=== PATIENT | female | born 1960 | race Caucasian/White ===

== ENCOUNTER → 2016-03-05 | Outpatient (CLI) | payer OTHER ==
[~2016-03-05] MED LIST: CHOL100010 PO; DEXL30CA5 PO; DICL1GEL28 TD; FLAX1CAP11 PO; FLV1 PO; HYDR0.5T PO; LMS250 PO; MISCCAP80 PO; MULT-506 PO; OMEG10007 PO; OYST500T47 PO; PHEN500T PO; RSTOPS OP; SNG10 PO; VITAMIN D PO; ZINC PO; [UNRECOGNIZED DRUG - CODE]
== END | disposition home or self-care (01) ==
LOC: C.PAPS 12:00
PROVIDERS: ATTEND Obstetrics & Gynecology
DX: Z01.419 Encounter for gynecological examination (general) (routine) without abnormal findings (principal)

== ENCOUNTER → 2016-06-14 | Outpatient (CLI) | payer OTHER ==
[~2016-06-14] MED LIST changes: +CYCL0.052 OPB; +GADAVIST IV PRN; +HYDR200T5 PO; +MONT1TAB3 PO
--- NOTE | 2016-06-14 09:05 | DIAGNOSTIC IMAGING REPORT ---
MRI OF THE BRAIN WITHOUT AND WITH IV CONTRAST CLINICAL HISTORY: Difficulty swallowing. Extremity tingling. COMPARISON STUDY: MRI of the brain August 04, 2015. TECHNIQUE: Utilizing a 1.5 Lisa magnet and dedicated coil, multiplanar, multiecho imaging of the brain was performed pre and postcontrast administration. IV administration of 6 mL of Gadavist contrast was uneventful. FINDINGS: There are no areas of restricted diffusion. No acute intracranial hemorrhage, midline shift or mass effect is present. Brain volume is normal. Ventricular system is normal. Basilar cisterns are patent. Flow-voids for the major intracranial vessels are present. There are no intracranial masses or areas of pathologic enhancement. Calvarial signal is normal. There are no areas of parenchymal signal abnormality. Sinuses and mastoid air cells are clear. IMPRESSION: Normal MRI of the brain. Electronically signed by: Joaquín Pichardo M.D. 06/14/2016 9:04 AM Dictated Date/Time: 06/14/2016 9:01 AM
== END | disposition home or self-care (01) ==
LOC: C.MRI 08:00
PROVIDERS: ATTEND Physician Assistant
DX: R20.2 Paresthesia of skin (principal); R13.10 Dysphagia, unspecified

== ENCOUNTER → 2016-06-20 | Outpatient (CLI) | payer OTHER ==
[~2016-06-20] MED LIST changes: -GADAVIST IV PRN; +OPTIRAY 320 IV PRN
--- NOTE | 2016-06-20 08:05 | DIAGNOSTIC IMAGING REPORT ---
CT SOFT TISSUE NECK WITH CT DOSE: 222.69 mGy.cm CLINICAL HISTORY: Neck pain. Difficulty swallowing. TECHNIQUE: Helical images were acquired during intravenous administration of 94 cc of Optiray 320. COMPARISON STUDY: None. FINDINGS: There is a 3 mm groundglass nodule within the right lung apex on image #[id number]. No thyroid masses are visualized. No salivary gland masses are visualized. There are no pathologically enlarged cervical lymph nodes. No necrotic nodes are evident. There are no fluid collections suspicious for abscess. There is no evidence of airway compromise. No mucosal space masses are visualized. There are degenerative changes present within the cervical spine most pronounced at the C4-5 and C5-6 levels. IMPRESSION: 1. No pathologic neck masses identified 2. No evidence of pathologic adenopathy 3. 3 mm groundglass right upper lobe pulmonary nodule. No follow-up is indicated per recent guidelines. Electronically signed by: Toro Garvey M.D. 06/20/2016 8:04 AM Dictated Date/Time: 06/20/2016 7:59 AM
== END | disposition home or self-care (01) ==
LOC: C.CTS 07:24
PROVIDERS: ATTEND Physician Assistant
DX: M54.2 Cervicalgia (principal); R13.10 Dysphagia, unspecified

== ENCOUNTER → 2016-07-03 | Outpatient (CLI) | payer OTHER ==
[~2016-07-03] MED LIST changes: +GADAVIST IV PRN; -OPTIRAY 320 IV PRN
--- NOTE | 2016-07-03 17:20 | DIAGNOSTIC IMAGING REPORT ---
MRI LUMBAR SPINE COMBINATION CLINICAL HISTORY: Low back pain, tingling, numbness, burning in the feet and legs. POSSIBLE MULTIPLE SCLEROSIS. TECHNIQUE: Sagittal and axial T1, T2 and STIR images were obtained. Images were obtained before and after the administration of 6 cc of intravenous Gadavist COMPARISON STUDY: No previous studies for comparison. OBSERVATIONS: The vertebral bodies and posterior elements appear intact. There is no abnormal bony signal present to suggest a marrow replacement process. L1-2: No disc protrusions or extrusions. No evidence of spinal canal or neural foraminal compromise. L2-3: No disc protrusions or extrusions. No evidence of spinal canal or neural foraminal compromise. L3-4: No disc protrusions or extrusions. No evidence of spinal canal or neural foraminal compromise. L4-5: There is a small broad-based central disc protrusion slightly asymmetric to the left. There is slight flattening of the anterior thecal sac. There is no significant foraminal narrowing. L5-S1: There is a minimal circumferential disc bulge. There is no spinal or foraminal stenosis. The conus medullaris and cauda equina appear normal. There is no pathologic enhancement. IMPRESSION: 1. No evidence of pathologic marrow replacement 2. No masses of the conus. 3. No evidence of pathologic enhancement 4. Small broad-based central disc protrusion slightly asymmetric to the left at the L4-5 level. Electronically signed by: Toro Garvey M.D. 07/03/2016 5:19 PM Dictated Date/Time: 07/03/2016 5:16 PM
--- NOTE | 2016-07-03 18:04 | DIAGNOSTIC IMAGING REPORT ---
MRI CERVICAL SPINE COMBO CLINICAL HISTORY: R20.2 [id number] TECHNIQUE: Sagittal and axial T1, T2 and STIR images were obtained. Imaging was performed before and after administration of 6 cc of intravenous Gadavist. COMPARISON STUDY: No previous studies for comparison. There are no suspicious areas of marrow replacement. No intrinsic cervical cord lesions are visualized. C2-3: There is no evidence of disc bulge or focal herniation. There is no spinal or foraminal stenosis. C3-4: There is no evidence of disc bulge or focal herniation. There is no spinal or foraminal stenosis. C4-5: There is a mild circumferential disc bulge. There is no significant spinal stenosis. There is minimal right-sided foraminal narrowing C5-6 :There is a mild circumferential disc bulge. There is no significant spinal stenosis. There is minor bilateral foraminal narrowing C6-7: There is a minimal circumferential disc bulge. There is no spinal or foraminal stenosis. C7-T1: There is no evidence of disc bulge or focal herniation. There is no evidence of spinal or foraminal stenosis. 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 There are no pathologically enhancing lesions. IMPRESSION: 1. Mild multilevel spondylitic changes 2. No evidence of significant spinal stenosis 3. No cervical cord lesions are visualized. Electronically signed by: Toro Garvey M.D. 07/03/2016 6:03 PM Dictated Date/Time: 07/03/2016 6:00 PM
--- NOTE | 2016-07-03 18:08 | DIAGNOSTIC IMAGING REPORT ---
THORACIC SPINE COMBO CLINICAL HISTORY: R20.2 [id number] COMPARISON STUDY: No previous studies for comparison. FINDINGS: The patient was scanned in the sagittal and axial planes, before and after the administration of 6 cc of intravenous Gadavist. There are no suspicious areas of marrow replacement. No disc herniations are visualized. There is no spinal stenosis. There are no intrinsic cord lesions. There are multiple perineural cysts present. There is no pathologic enhancement. Incidental note is made of a right hepatic lobe cyst. There is a T10 vertebral body hemangioma. IMPRESSION: 1. Minimal degenerative change 2. No evidence of spinal stenosis 3. Multiple perineural cysts 4. No spinal cord plaques are visualized. Electronically signed by: Toro Garvey M.D. 07/03/2016 6:07 PM Dictated Date/Time: 07/03/2016 6:04 PM
== END | disposition home or self-care (01) ==
LOC: C.MRI 15:30
PROVIDERS: ATTEND Physician Assistant
DX: R20.2 Paresthesia of skin (principal)

== ENCOUNTER → 2016-07-28 | Outpatient (CLI) | payer OTHER ==
[~2016-07-28] MED LIST changes: -GADAVIST IV PRN
[2016-07-28 11:21] LABS: BLOOD UREA NITROGEN 17 mg/dl (7-18); BUN/CREATININE RATIO 25.9 (10-20); CALCIUM 8.9 mg/dl (8.5-10.1); CARBON DIOXIDE 26 mmol/L (21-32); CHLORIDE 110 mmol/L (98-107); CREATININE 0.67 mg/dl (0.60-1.20); GLUCOSE 90 mg/dl (70-99); MAGNESIUM 2.2 mg/dl (1.8-2.4); POTASSIUM 4.1 mmol/L (3.5-5.1); SODIUM 143 mmol/L (136-145)
[2016-07-28 11:34] LABS: PHOSPHORUS 3.4 mg/dl (2.5-4.9)
[2016-08-01 22:21] LABS: ILGF1 Z SCORE FEMALE 1.2 SD (-2.0 - +2.0); INSULIN LIKE GROWTH FACTOR-I 232 ng/mL (50-317)
== END | disposition home or self-care (01) ==
LOC: C.LABBC 08:38
PROVIDERS: ATTEND Internal Medicine Endocrinology, Diabetes & Metabolism
DX: R53.83 Other fatigue (principal); S06.0X9A Concussion with loss of consciousness of unspecified duration, initial encounter; R00.2 Palpitations; K58.9 Irritable bowel syndrome, unspecified; M35.9 Systemic involvement of connective tissue, unspecified; M54.5 Low back pain

== ENCOUNTER → 2016-10-09 | Day surgery (SDC) | payer OTHER ==
[2016-09-25 11:53] VITALS: Ht 162.6 cm; Wt 60.0 kg
[~2016-10-09] VITALS: Ht 162.6 cm; Wt 60.0 kg
[~2016-10-09] MED LIST changes: -CHOL100010 PO; -DICL1GEL28 TD; -FLAX1CAP11 PO; -FLV1 PO; -OYST500T47 PO; -ZINC PO
[2016-10-09 15:05] VITALS: BP 143/58; PULSE 63; O2SAT 99
--- NOTE | 2016-10-10 07:57 | Procedure Note ---
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 Plan: Recommend Xifaxan 550mg by mouth three times daily for [address] Rashid as scheduled Followup in our office as scheduled
== END | disposition home or self-care (01) ==
LOC: C.GI 11:49
PROVIDERS: ATTEND Internal Medicine
DX: K21.0 Gastro-esophageal reflux disease with esophagitis (principal); R13.10 Dysphagia, unspecified

== ENCOUNTER → 2016-11-06 | Outpatient (CLI) | payer OTHER ==
--- NOTE | 2016-11-07 08:10 | MAMMOGRAPHY REPORT ---
BILATERAL DIGITAL SCREENING MAMMOGRAM TOMOSYNTHESIS WITH CAD: 11/06/2016 CLINICAL HISTORY: Routine screening. Patient has no complaints. TECHNIQUE: Breast tomosynthesis in addition to standard 2D mammography was performed. Current study was also evaluated with a Computer Aided Detection (CAD) system. COMPARISON: Comparison is made to exams dated: 11/02/2015 mammogram, 10/26/2014 mammogram, 10/22/2013 jd mogram, 10/21/2012 mammogram, 10/18/2011 mammogram, and 10/16/2010 mammogram - [facility] er. BREAST COMPOSITION: The tissue of both breasts is heterogeneously dense, which may obscure small mas ses. FINDINGS: The parenchymal pattern is unchanged. No developing mass, architectural distortion or clus ter of suspicious microcalcifications is seen in either breast. IMPRESSION: ACR BI-RADS CATEGORY 2: BENIGN There is no mammographic evidence of malignancy. A 1 year screening mammogram is recommended. The pa tient will receive written notification of the results. Approximately 10% of breast cancers are not detected with mammography. A negative mammographic report should not delay biopsy if a clinically suggestive mass is present. Rachelle Alas M.D. ay/:11/06/2016 17:14:25 Gas Operation Manager: Freddy Coleman, M, [facility] letter sent: Normal 1/2 BI-RADS Code: ACR BI-RADS Category 2: Benign
== END | disposition home or self-care (01) ==
LOC: C.MAMM 07:59
PROVIDERS: ATTEND Obstetrics & Gynecology
DX: Z12.31 Encounter for screening mammogram for malignant neoplasm of breast (principal)

== ENCOUNTER → 2016-11-28 | Day surgery (SDC) | payer OTHER ==
[~2016-11-28] VITALS: Ht 162.6 cm; Wt 60.5 kg
[~2016-11-28] MED LIST changes: +COSYNTROPIN INJ 1 MCG in SYRINGE 0 ML IV SCH
[2016-11-28 08:13] VITALS: BP 113/52; PULSE 79; TEMP 36.6; O2SAT 98; Ht 162.6 cm; Wt 60.5 kg
[2016-11-28 09:40] LABS: THYROID STIMULATING HORMONE 1.18 uIu/ml (0.300-4.500)
== END | disposition home or self-care (01) ==
LOC: C.MTU 07:50
PROVIDERS: ATTEND Internal Medicine Endocrinology, Diabetes & Metabolism
DX: S06.0X9A Concussion with loss of consciousness of unspecified duration, initial encounter (principal); R53.83 Other fatigue; X58.XXXA Exposure to other specified factors, initial encounter

== ENCOUNTER → 2016-12-10 | Day surgery (SDC) | payer OTHER ==
[2016-11-30 14:44] VITALS: BMI 22.0
[~2016-12-10] VITALS: Ht 162.6 cm; Wt 60.0 kg
[~2016-12-10] MED LIST changes: -HYDR0.5T PO; +LIDOCAINE HCL 2% 2 ML VIAL (20MG/ML) ONE; +PROPOFOL IV EMULSION 10 MG/ML 20 ML VIAL IV ONE; -RSTOPS OP; -SNG10 PO; +SODIUM CHLORIDE 0.9% 500ML 500 ML IV ONE
[2016-12-10 14:18] VITALS: Ht 162.6 cm; Wt 60.0 kg
[2016-12-10 14:21] VITALS: TEMP 36.4
--- NOTE | 2016-12-10 14:40 | Endo History and Physical ---
History & Physical Date of Service: Dec 10, 2016. Chief Complaint: WILKES'S ESOPHAGUS Referring Physician: DR. ERIN CRYSTAL History of Present Illness 56 yo CF who presents for EGD secondary to Wilkes's Esophagus. Past Medical History Gastrointestinal Disorder, Reflux, Thyroid Disease, Other Past Surgical History Hx Cardiac Surgery: No Hx Internal Defibrillator: No Hx Pacemaker: No Hx Abdominal Surgery: No Hx Post-Op Nausea and Vomiting: No Hx Cancer Surgery: No Hx Thoracic Surgery: No Hx Orthopedic: No Hx Urinary Tract Surgery: No Family History IBD Social History Smoking Status: Never Smoker Hx Substance Use: No Hx Alcohol Use: Yes ("SOCIALLY") Allergies Coded Allergies: Codeine (Verified Allergy, Unknown, PARESTHESIAS, 11/30/16) Ketamine (Verified Allergy, Unknown, "crying and sobbing", 11/30/16) Morphine (Verified Allergy, Unknown, nausea and vomiting, 11/30/16) Oxycodone (Verified Allergy, Unknown, DIZZINESS, 11/30/16) Propoxyphene (Verified Allergy, Unknown, VOMITING, 11/30/16) Sulfa Drugs (Verified Allergy, Unknown, RASH, 11/30/16) Escitalopram (Verified Adverse Reaction, Severe, tachycardia, 11/30/16) Nitrofurantoin (Verified Adverse Reaction, Intermediate, abd pain, ) Current Medications Reported Home Medications Medications Dose Route/Sig Max Daily Dose Days Date Category Dose Instructions Restasis (Cyclosporine (Ophth)) 0.05 % Emu 1 Drop OPB BID 11/30/16 Reported Plaquenil (Hydroxychloroquine Sulfate) 200 Mg Tab 200 Mg PO Q2D 11/30/16 Reported Plaquenil (Hydroxychloroquine Sulfate) 200 Mg Tab 2 Tab PO Q2D 30 11/30/16 Reported Singulair (Montelukast Sodium) 10 Mg Tab 10 Mg PO DAILY PRN 11/30/16 Reported Probiotic (Probiotic Product) 1 Cap Cap 1 Cap PO HS 09/25/16 Reported Multivitamin (Multivitamins) Tab 1 Tab PO HS 09/25/16 Reported [Vitamin D] 10,000 Inter.unit PO QAM 09/25/16 Reported Dexilant (Dexlansoprazole) 30 Mg Cap 1 Cap PO BID 09/25/16 Reported Estriol Micronized 1 Pow Pow UD 11/27/13 Reported VAGINAL CREAM 0.3MG/1ML USE TWICE WEEKLY Terbinafine HCl (Terbinafine) 250 Mg Tab 250 Mg PO DAILY PRN 11/27/13 Reported L-Phenylalanine (Phenylalanine) 500 Mg Tab 500 Mg PO UD 05/20/13 Reported TAKES 2 MORNING AND 2 AFTERNOON 1 AT HS [place]-3 (Fish Oil) 1 Ea Cap 1 Cap PO BID 05/20/13 Reported Vital Signs Weight (Kilograms): 60.00 Height (Feet): 5 Height (Inches): 4 Date Time Temp Pulse Resp B/P (MAP) Pulse Ox O2 Delivery O2 Flow Rate FiO2 12/10/16 14:21 36.4 72 18 127/62 (83) 100 Room Air Physical Exam General Appearance: WD/WN, no apparent distress Respiratory/Chest: Auscultation: breath sounds normal Cardiovascular: Heart Auscultation: RRR Abdomen: Bowel Sounds: normal Inspection & Palpation: soft, non-distended, no tenderness, guarding & rebound Assessment and Plan Assessment: 56 yo CF who presents for EGD secondary to Wilkes's Esophagus. Plan: Proceed with EGD
--- NOTE | 2016-12-10 15:03 | Discharge Instructions ---
Endoscopy Patient Instructions Date / Procedure(s) Performed Dec 10, 2016. EGD Allergy Information Coded Allergies: Codeine (Verified Allergy, Unknown, PARESTHESIAS, 11/30/16) Ketamine (Verified Allergy, Unknown, "crying and sobbing", 11/30/16) Morphine (Verified Allergy, Unknown, nausea and vomiting, 11/30/16) Oxycodone (Verified Allergy, Unknown, DIZZINESS, 11/30/16) Propoxyphene (Verified Allergy, Unknown, VOMITING, 11/30/16) Sulfa Drugs (Verified Allergy, Unknown, RASH, 11/30/16) Escitalopram (Verified Adverse Reaction, Severe, tachycardia, 11/30/16) Nitrofurantoin (Verified Adverse Reaction, Intermediate, abd pain, ) Discharge Date / Findings Dec 10, 2016. Hiatal hernia Marquez's esophagus with biopsies Medication Instructions OK to resume all medications today as prescribed Reported Home Medications Medications Dose Route/Sig Max Daily Dose Days Date Category Dose Instructions Restasis (Cyclosporine (Ophth)) 0.05 % Emu 1 Drop OPB BID 11/30/16 Reported Plaquenil (Hydroxychloroquine Sulfate) 200 Mg Tab 200 Mg PO Q2D 11/30/16 Reported Plaquenil (Hydroxychloroquine Sulfate) 200 Mg Tab 2 Tab PO Q2D 30 11/30/16 Reported Singulair (Montelukast Sodium) 10 Mg Tab 10 Mg PO DAILY PRN 11/30/16 Reported Probiotic (Probiotic Product) 1 Cap Cap 1 Cap PO HS 09/25/16 Reported Multivitamin (Multivitamins) Tab 1 Tab PO HS 09/25/16 Reported [Vitamin D] 10,000 Inter.unit PO QAM 09/25/16 Reported Dexilant (Dexlansoprazole) 30 Mg Cap 1 Cap PO BID 09/25/16 Reported Estriol Micronized 1 Pow Pow UD 11/27/13 Reported VAGINAL CREAM 0.3MG/1ML USE TWICE WEEKLY Terbinafine HCl (Terbinafine) 250 Mg Tab 250 Mg PO DAILY PRN 11/27/13 Reported L-Phenylalanine (Phenylalanine) 500 Mg Tab 500 Mg PO UD 05/20/13 Reported TAKES 2 MORNING AND 2 AFTERNOON 1 AT HS [place]-3 (Fish Oil) 1 Ea Cap 1 Cap PO BID 05/20/13 Reported Provider Instructions Activity Restrictions - No exercising or heavy lifting for 24 hours. - Do not drink alcohol the day of the procedure. - Do not drive a car or operate machinery until the day after the procedure. - Do not make any important decisions or sign important papers in 24 hours after the procedure. Following Day: - Return to full activity which may include returning to work/school. Diet Start your diet with liquids and light foods (jello, soup, juice, toast). Then eat your usual diet if not nauseated. Treatment For Common After Affects For mild abdominal pain, bloating, or excessive gas: - Rest - Eat lightly - Lie on right side Follow-Up Information Follow-up with DR. ERIN CRYSTAL as scheduled Anesthesia Information What You Should Know You have had a procedure that required some medicine to reduce anxiety and discomfort. This treatment is called moderate sedation. After receiving the treatment, you may be sleepy, but you will be able to breathe on your own. The effects of the treatment may last for several hours. Follow these instructions along with Activity/Diet recommendations noted above: * Do NOT do anything where dizziness or clumsiness would be dangerous. * Rest quietly at home today, then you can be up and about tomorrow. * Have a responsible person stay with you the rest of today. * You may have had an I.V. today. If so, you may take the dressing off later today. Recommendations Call your doctor if: * Trouble breathing * Continuous vomiting for more than 24 hours * Temperature above 101 degrees * Severe abdominal pain or bloating * Pain not relieved by pain medicine ordered * There is increased drainage or redness from any incision * A large amount of rectal bleeding greater than 2-3 tablespoons. (If you had a polyp/s removed or have hemorrhoids, a small amount of blood - from the rectum is to be expected.) * You have any unanswered questions or concerns. IN THE EVENT OF A SERIOUS EMERGENCY, GO TO THE NEAREST EMERGENCY ROOM Your discharge instructions were prepared by provider Chucky Serrato. Patient Instructions Signature Page Myrna Holt Patient (or Guardian) Signature/Date: I have read and understand the instructions given to me by my caregivers. Caregiver/RN/Doctor Signature/Date: The above-named patient and/or guardian has received patient instructions on this date. + Original Patient Signature Page (only) stays with chart. Please make copy for patient.
--- NOTE | 2016-12-10 15:06 | GI REPORT ---
Procedure Date: 12/10/2016 2:40 PM Procedure: Upper GI endoscopy Indications: Follow-up of Marquez's esophagus Medicines: Monitored Anesthesia Care Complications: No immediate complications. Estimated Blood Loss: Estimated blood loss: none. Procedure: Pre-Anesthesia Assessment: - Prior to the procedure, a History and Physical was performed, and patient medications and allergies were reviewed. The patient's tolerance of previous anesthesia was also reviewed. The risks and benefits of the procedure and the sedation options and risks were discussed with the patient. All questions were answered, and informed consent was obtained. Prior Anticoagulants: The patient has taken no previous anticoagulant or antiplatelet agents. ASA Grade Assessment: II - A patient with mild systemic disease. After reviewing the risks and benefits, the patient was deemed in satisfactory condition to undergo the procedure. After obtaining informed consent, the endoscope was passed under direct vision. Throughout the procedure, the patient's blood pressure, pulse, and oxygen saturations were monitored continuously. The On-site loaner was introduced through the mouth, and advanced to the second part of duodenum. The upper GI endoscopy was accomplished without difficulty. The patient tolerated the procedure well. Findings: There were esophageal mucosal changes consistent with short-segment Marquez's esophagus present in the lower third of the esophagus. The maximum longitudinal extent of these mucosal changes was 2 cm in length. Mucosa was biopsied with a cold forceps for histology. One specimen bottle was sent to pathology. A small hiatus hernia was present. The examined duodenum was normal. 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 Biopsied. - Small hiatus hernia. - Normal examined duodenum. Recommendation: - Resume previous diet. - Continue present medications. - Await pathology results. - Return to primary care physician as previously scheduled. Chucky Serrato DO 12/10/2016 3:05:56 PM This report has been signed electronically. Note Initiated On: 12/10/2016 2:40 PM I attest to the content of the Intraoperative Record and orders documented therein, exceptions below
[2016-12-10 15:31] VITALS: BP 117/71; PULSE 61; O2SAT 100
--- NOTE | 2016-12-10 15:37 | Anesthesiology Progress Note ---
Anesthesia Post Op Note Date & Time Dec 10, 2016 at 15:36 Vital Signs Pain Intensity: 0 Vital Signs Past 12 Hours Date Time Temp Pulse Resp B/P (MAP) Pulse Ox O2 Delivery O2 Flow Rate FiO2 12/10/16 15:31 61 18 117/71 (86) 100 Room Air 12/10/16 15:20 60 18 122/65 (84) 95 Room Air 12/10/16 15:14 62 18 109/74 (86) 98 Room Air 12/10/16 15:08 69 18 109/74 (86) 98 Room Air 12/10/16 15:01 70 18 110/54 (72) 100 Room Air 12/10/16 14:21 36.4 72 18 127/62 (83) 100 Room Air Notes Mental Status: alert / awake / arousable, participated in evaluation Pt Amnestic to Procedure: Yes Nausea / Vomiting: adequately controlled Pain: adequately controlled Airway Patency, RR, SpO2: stable & adequate BP & HR: stable & adequate Hydration State: stable & adequate Anesthetic Complications: no major complications apparent
== END | disposition home or self-care (01) ==
LOC: C.GI 14:03
PROVIDERS: ATTEND Internal Medicine
DX: K22.70 Barrett's esophagus without dysplasia (principal); K21.0 Gastro-esophageal reflux disease with esophagitis; K44.9 Diaphragmatic hernia without obstruction or gangrene; E07.9 Disorder of thyroid, unspecified; Z83.79 Family history of other diseases of the digestive system; Z79.899 Other long term (current) drug therapy

== ENCOUNTER → 2017-01-03 | Outpatient (CLI) | payer OTHER ==
[~2017-01-03] MED LIST changes: -COSYNTROPIN INJ 1 MCG in SYRINGE 0 ML IV SCH; -LIDOCAINE HCL 2% 2 ML VIAL (20MG/ML) ONE; -PROPOFOL IV EMULSION 10 MG/ML 20 ML VIAL IV ONE; -SODIUM CHLORIDE 0.9% 500ML 500 ML IV ONE
== END | disposition home or self-care (01) ==
LOC: C.LAB 20:16
PROVIDERS: ATTEND Family Medicine
DX: R07.81 Pleurodynia (principal); R06.00 Dyspnea, unspecified

== ENCOUNTER → 2017-01-09 | Outpatient (CLI) | payer OTHER | END | disposition home or self-care (01) | LOC: C.LAB 15:04 | PROVIDERS: ATTEND Family Medicine | DX: R07.9 Chest pain, unspecified (principal) ==

== ENCOUNTER → 2017-01-30 | Outpatient (CLI) | payer OTHER ==
--- NOTE | 2017-01-30 14:01 | ECHOCARDIOGRAM REPORT ---
*NOTICE TO RECEIVING CONSTITUTION PARTY AGENCY This information is strictly Confidential and protected under [place] law. [place] law prohibits you from making any further disclosure of this information unless further disclosure is expressly permitted by the written consent of the person to whom it pertains or is authorized by law. A general authorization for the release of medical or other information is not sufficient for this purpose. Hospital accepts no responsibility if the information is made available to any other person, INCLUDING THE PATIENT. Interpretation Summary * Name: YOVANI SMALL Study Date: 01/30/2017 01:04 PM BP: 117/40 mmHg * Patient Location: [facility] HR: 77 * : 1960 (M/d/yyyy) Gender: Female Height: 64 in * Age: 56 yrs Ethnicity: CA Weight: 132 lb * Ordering Physician: Meeta Rashid * Referring Physician: Meeta Rashid D.O. * Performed By: Haylee Rivera RDCS * * Reason For Study: CHEST PAIN * BSA: 1.6 m2 * -- Conclusions -- * Left ventricular systolic function is normal. * No regional wall motion abnormalities noted. * Ejection Fraction = 55-60%. * No significant valvular pathology. Procedure Details * A complete two-dimensional transthoracic echocardiogram was performed (2D, M-mode, Doppler and color flow Doppler). Left Ventricle * The left ventricle is normal in size. * There is normal left ventricular wall thickness. * Ejection Fraction = 55-60%. * Left ventricular systolic function is normal. * No regional wall motion abnormalities noted. Right Ventricle * The right ventricle is normal size. * The right ventricular systolic function is normal as assessed by tricuspid annular plane systolic excursion (TAPSE) (normal >1.5 cm). Atria * The left atrial size is normal. * Right atrial size is normal. * No ASD detected; PFO is not assessed. Mitral Valve * The mitral valve anatomy is normal. * There is no mitral valve stenosis. * Significant mitral regurgitation is absent. Tricuspid Valve * The tricuspid valve anatomy is normal. * There is no tricuspid stenosis. * Significant tricuspid regurgitation is absent. Aortic Valve * The aortic valve is normal in structure and function. * Aortic stenosis is absent. * No aortic regurgitation is present. Pulmonic Valve * The pulmonary valve is not well seen, but the Doppler examination is normal without significant regurgitation or stenosis. Great Vessels * The aortic root is normal size. * The pulmonary artery is not well visualized, but is probably normal size. Pericardium/Pleural * There is no pericardial effusion. Great Vessels * Normal inferior vena cava size and collapsability with sniff indicates a normal right atrial pressure of 3 mmHg MMode 2D Measurements and Calculations IVSd 0.83 cm IVSs 1.1 cm LVIDd 4.3 cm LVIDs 3.1 cm LVPWd 0.51 cm LVPWs 1.2 cm IVS/LVPW 1.7 FS 27.8 % EDV(Teich) 82.1 ml ESV(Teich) 37.6 ml EF(Teich) 54.2 % EDV(cubed) 78.4 ml ESV(cubed) 29.5 ml EF(cubed) 62.4 % % IVS thick 27.6 % % LVPW thick 133.1 % LV mass(C)d 83.0 grams LV mass(C)dI 50.6 grams/m\S\2 LV mass(C)s 102.1 grams LV mass(C)sI 62.3 grams/m\S\2 SV(Teich) 44.5 ml SI(Teich) 27.2 ml/m\S\2 SV(cubed) 48.9 ml SI(cubed) 29.8 ml/m\S\2 ACS 1.5 cm LA dimension 2.8 cm asc Aorta Diam 2.1 cm LVOT diam 1.7 cm LVOT area 2.3 cm\S\2 LVAd ap4 24.9 cm\S\2 LVLd ap4 7.3 cm EDV(MOD-sp4) 70.3 ml EDV(sp4-el) 72.0 ml LVAs ap4 15.2 cm\S\2 LVLs ap4 6.3 cm ESV(MOD-sp4) 30.3 ml ESV(sp4-el) 31.2 ml EF(MOD-sp4) 56.9 % EF(sp4-el) 56.6 % LVAd ap2 28.2 cm\S\2 LVLd ap2 8.1 cm EDV(MOD-sp2) 83.3 ml EDV(sp2-el) 83.3 ml LVAs ap2 16.6 cm\S\2 LVLs ap2 6.6 cm ESV(MOD-sp2) 35.8 ml ESV(sp2-el) 35.5 ml EF(MOD-sp2) 57.1 % EF(sp2-el) 57.4 % LVLd %diff 9.5 % EDV(MOD-bp) 80.6 ml LVLs %diff 4.7 % ESV(MOD-bp) 33.9 ml EF(MOD-bp) 58.0 % SV(MOD-sp4) 40.0 ml SI(MOD-sp4) 24.4 ml/m\S\2 SV(MOD-sp2) 47.5 ml SI(MOD-sp2) 29.0 ml/m\S\2 SV(MOD-bp) 46.7 ml SI(MOD-bp) 28.5 ml/m\S\2 SV(sp4-el) 40.8 ml SI(sp4-el) 24.9 ml/m\S\2 SV(sp2-el) 47.8 ml SI(sp2-el) 29.2 ml/m\S\2 Doppler Measurements and Calculations MV E max shanda 101.4 cm/sec MV A max shanda 76.6 cm/sec MV E/A 1.3 MV dec time 0.24 sec Ao V2 max 99.2 cm/sec Ao max PG 3.9 mmHg Ao max PG (full) -0.13 mmHg SEVERIANO(V,A) 2.3 cm\S\2 SEVERIANO(V,D) 2.3 cm\S\2 LV V1 max PG 4.1 mmHg LV V1 max 100.8 cm/sec MR max shanda 198.4 cm/sec MR max PG 15.8 mmHg PA V2 max 79.3 cm/sec PA max PG 2.5 mmHg
== END | disposition home or self-care (01) ==
LOC: C.CPL 07:12
PROVIDERS: ATTEND Family Medicine
DX: R07.9 Chest pain, unspecified (principal)

== ENCOUNTER → 2017-07-01 | Outpatient (CLI) | payer OTHER ==
[2017-07-01 15:41] LABS: BASO % 0.2 %; BASO ABS # 0.01 K/uL (0-0.2); EOS ABS # 0.09 K/uL (0-0.5); HEMATOCRIT 39.5 % (37-47); HEMOGLOBIN 13.3 g/dL (12.0-16.0); IG# 0.01 K/uL (0.00-0.02); LYMPH % 28.4 %; LYMPH ABS # 1.26 K/uL (1.2-3.4); MEAN CELL VOLUME 92.9 fL (80-100); MEAN CORPUSCULAR HEMOGLOBIN 31.3 pg (25-34); MEAN CORPUSCULAR HGB CONC 33.7 g/dl (32-36); MEAN PLATELET VOLUME 10.7 fL (7.4-10.4); MONO % 6.3 %; MONO ABS # 0.28 K/uL (0.11-0.59); NEUT % 62.9 %; NEUT ABS # 2.79 K/uL (1.4-6.5); PLATELET COUNT 156 K/uL (130-400); RED CELL DISTRIBUTION WIDTH CV 12.7 % (11.5-14.5); RED CELL DISTRIBUTION WIDTH SD 42.9 fL (36.4-46.3); WHITE BLOOD COUNT 4.44 K/uL (4.8-10.8)
[2017-07-01 16:00] LABS: ALBUMIN 3.9 gm/dl (3.4-5.0); ALT/SGPT 23 U/L (12-78); AST/SGOT 17 U/L (15-37); BLOOD UREA NITROGEN 14 mg/dl (7-18); CALCIUM 8.6 mg/dl (8.5-10.1); CARBON DIOXIDE 29 mmol/L (21-32); CREATININE 0.79 mg/dl (0.60-1.20); GLUCOSE 113 mg/dl (70-99); POTASSIUM 3.4 mmol/L (3.5-5.1); SODIUM 141 mmol/L (136-145)
[2017-07-01 16:02] LABS: ALKALINE PHOSPHATASE 52 U/L (45-117); TOTAL PROTEIN 6.6 gm/dl (6.4-8.2)
== END | disposition home or self-care (01) ==
LOC: C.LAB 14:15
PROVIDERS: ATTEND Internal Medicine
DX: K21.0 Gastro-esophageal reflux disease with esophagitis (principal); K22.70 Barrett's esophagus without dysplasia

== ENCOUNTER → 2017-07-03 | Outpatient (CLI) | payer OTHER ==
--- NOTE | 2017-07-03 08:21 | DIAGNOSTIC IMAGING REPORT ---
DOUBLE CONTRAST UPPER GI SERIES AND SMALL BOWEL FOLLOW-THROUGH CLINICAL HISTORY: Marquez's esophagus. Chronic esophageal reflux. Diarrhea. COMPARISON STUDY: Abdominal CT dated 01/21/2012. TECHNIQUE: An abdominal brass pickler radiograph was performed. A standard air contrast upper GI series was then performed. Spot images of the esophagus and stomach were obtained in multiple obliquities with upright and prone. The patient then consumed several of thin barium and a small follow-through was performed. Overhead radiographs and spot compression images were obtained. FINDINGS: The patient swallowed barium without difficulty. The esophagus is structurally normal without evidence of intrinsic or extrinsic mass. The esophageal mucosal pattern is normal. No gastroesophageal reflux was elicited by having the patient performed a Valsalva maneuver. The gastroesophageal junction distends normally. The stomach is normal in configuration and demonstrates normal distensibility. No mass or ulceration is identified. Mild gastric thickening suggests gastritis. There are at least 2 small duodenal diverticula. The duodenal bulb and sweep are otherwise unremarkable. The abdominal brass pickler radiograph shows a nonobstructed abdominal bowel gas pattern. Mild colonic fecal retention is observed. There are numerous phleboliths in the pelvis. The bony structures appear intact. On the small bowel follow-through, there is normal transit time with contrast identified in the colon at 40 minutes. The small bowel mucosal pattern is normal. There is no evidence of stricture or mass. The distal/terminal ileum are normal in appearance on the spot compression views. Fluoroscopy time: 2.5 minutes. Fluoroscopic images: 32 IMPRESSION: 1. Mild gastric fold thickening suggests gastritis. Clinical correlation will be required. 2. Otherwise unremarkable fluoroscopic upper GI series. 3. Normal small bowel follow-through. Electronically signed by: Wayne Saldana M.D. 07/03/2017 8:20 AM Dictated Date/Time: 07/03/2017 8:17 AM
== END | disposition home or self-care (01) ==
LOC: C.RAD 07:06
PROVIDERS: ATTEND Internal Medicine
DX: K21.0 Gastro-esophageal reflux disease with esophagitis (principal); K22.70 Barrett's esophagus without dysplasia

== ENCOUNTER → 2017-09-05 | Outpatient (CLI) | payer OTHER ==
[2017-09-05 09:58] LABS: CORTISOL AM*DRAW BETWEEN 7-9AM 22.87 mcg/dl (4.30-22.40)
[2017-09-11 11:15] LABS: ACETYLCHOLINE RECEPT BLOCKING <15 (<15); ALDOLASE** TC 66985R 3.3 U/L (0.0-8.1); EBV EARLY ANTIGEN AB < 9.00 U/ML
== END | disposition home or self-care (01) ==
LOC: C.LAB1850 06:55
PROVIDERS: ATTEND Internal Medicine Endocrinology, Diabetes & Metabolism
DX: E55.9 Vitamin D deficiency, unspecified (principal); D50.9 Iron deficiency anemia, unspecified; R53.83 Other fatigue; N95.1 Menopausal and female climacteric states; D72.819 Decreased white blood cell count, unspecified; R00.2 Palpitations; E04.1 Nontoxic single thyroid nodule

== ENCOUNTER → 2017-09-23 | Outpatient (CLI) | payer OTHER | END | disposition home or self-care (01) | LOC: C.PAPS 18:42 | PROVIDERS: ATTEND Obstetrics & Gynecology | DX: Z01.419 Encounter for gynecological examination (general) (routine) without abnormal findings (principal) ==

== ENCOUNTER → 2017-09-23 | Outpatient (CLI) | payer OTHER | END | disposition home or self-care (01) | LOC: C.LABSPEC 17:43 | PROVIDERS: ATTEND Obstetrics & Gynecology | DX: N94.9 Unspecified condition associated with female genital organs and menstrual cycle (principal) ==